=== PATIENT | female | born 1940 | race Caucasian/White ===

== ENCOUNTER 2016-09-08 04:54 | Emergency (ER) | payer MEDICARE ==
[~2016-09-08] VITALS: Ht 167.6 cm; Wt 72.3 kg
[2016-09-08 04:55] VITALS: BP 186/68; PULSE 71; RESP 18; O2SAT 100
[2016-09-08] MEDS ORDERED: LORazepam 1 mg Tablet PO ONE (05:30)
[2016-09-08] MEDS ORDERED: Dexamethasone 20 mg/2 mL Oral Solution PO ONE (05:30)
--- NOTE | 2016-09-08 05:40 | ED.REPORT ---
HPI-Back Pain 40 and Over Date of Service Sep 08, 2016 ED Provider: Jeffrey Akhtar MD The patient is a 76 yo female with history of osteoporosis, SVT, niacin-induce hepatitis, and hyperlipidemia who is brought to the ED via EMS for worsening left-sided low back pain onset prior to arrival. She is in the process of moving and has been lifting some boxes. She then developed a low back pain 1.5 weeks ago. She saw her PCP and was told that it is likely due to muscle strain and was given Cyclobenzaprine and Tylenol, which did not help her pain at all. The pain is dull, but it gets worse with getting up the chair or changing positions. Her pain got worse tonight after she rolled/twisted her back on bed. Pain is severe enough that she cannot move. She reports dull pain in the left lower back that radiates to the left posterior thigh. Other associated symptoms include mild lower extremity edema and numbness. She denies urinary/bowel incontinence, nausea, vomiting, abdominal pain, dysuria, urinary symptoms, fever , chills, CP, SOB, or dizziness. No trauma. She has not had symptoms like this in the past and ambulates independently. She reports hallucination with low dose of Vicodin in the past. Nursing Notes Stated Complaint: LOW BACK PAIN Chief Complaint: Back Pain or Injury Nursing Notes Reviewed: Yes Allergies: Coded Allergies: Penicillins (Verified Allergy, Unknown, 09/08/16) alendronate sodium (Verified Allergy, Unknown, 09/08/16) losartan (Verified Allergy, Unknown, 09/08/16) Scheduled PRN oxyCODONE-Acetaminophen 5-325 mg (oxyCODONE-Acetaminophen 5-325 mg) 1 Each Tablet 0.5-1 TAB PO Q4H PRN PRN For Pain General Time Seen by MD: 05:20 Chief Complaint Back pain Hx Obtained From: Patient, Spouse Arrived By: Ambulance Sudden in Onset?: Yes Onset Occurred: 1 week ago (1.5 weeks) Symptom Duration: Intermittent Caused by: Lifting Location: : Spinal lumbar area Quality: Dull Radiation: : Left leg above knee Severity: Current: Pain level 3 out of 10 Severity: Maximum: Severe Associated with: Reports: Inability to walk, Numbness left low ext, Numbness right low ext, Weakness both lower ext, Denies: Abdominal pain, Chest pain, Cough, Dysuria, Fever, Frequency, Incontinence bladder, Incontinence bowel, Nausea, Vomiting Pertinent Negative: Pt denies other symptoms Exacerbated by: Bending, Movement Pertinent Negative: Relieved by nothing Recent Healthcare: Recent doctor visit Similar Sx Previous: No Past Medical History Past Medical History osteoporosis, SVT, niacin-induce hepatitis, and hyperlipidemia Past Surgical History 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 x 7 Family History Noncontributory Smoking History Never Smoker Social History Alcohol Use: 1-3 per week Drug Use: Denies drug use Other Social History: Good social support, Ambulatory Status Independent Review of Systems Basic Review of Systems Eyes: Vision NL, No discharge ENT: Hearing NL, No pain, No nasal congestion, No pharyngeal pain Psychiatric: Normal thought content Constitutional: Reports: Weakness - generalized, Denies: Chills, Fatigue Respiratory: Denies: Pleuritic pain, Shortness of breath, Wheezing Cardiovascular: Reports: Edema, Denies: Chest pain, Dyspnea on exertion, Palpitations GI: Denies: Abdominal pain, Anorexia, Constipation, Diarrhea, Dysphagia, Nausea , Vomiting Female: Denies: Dysuria, Incontinence, Urinary frequency, Urinary urgency Musculoskeletal: Reports: Back pain, Lumbar pain, Denies: Myalgia, Neck pain, Thoracic pain Neurologic: Reports: Shaking, Weakness, Denies: Bladder dysfunction, Bowel dysfunction, Change LOC, Confusion, Dizziness, Focal weakness, Headache, Lightheaded, Vision change Complete sys rev & neg: except as marked. Physical Exam Initial Vital Signs Vital Signs (First) Date Time Temp Pulse Resp B/P Pulse Ox O2 Delivery O2 Flow Rate FiO2 09/08/16 04:55 36.5 71 18 186/68 100 Room Air Initial VS: Reviewed (hypertensive) Head / Eyes: Atraumatic, Normocephalic, PERRL ENT: Conjunctiva normal, No scleral icterus Neck: Supple, Non-tender, Full range of motion Skin: Warm, Dry, No cyanosis Psychiatric: Mood/affect normal, Behavior normal, Normal thought content General/Constitutional: Awake, Alert, Well appearing, Cooperative, Not toxic appearing Distress / Hydration: Positive: Dehydration mild, Distress moderate Appearance / Presentation: Positive: In pain Respiratory / Chest: Atraumatic, Breath sounds NL, Breath sounds = bilat, No respiratory distress, No rales, No wheezing, No retractions Cardiovascular: Heart rate NL, Regular rhythm, Heart sounds NL, No gallop, No murmurs Abdomen: Atraumatic, Soft, Non-tender, No guarding, No rebound, BS normoactive , No distention Back: Atraumatic Flank / Spine / Paraspinal: Positive: Lumbar spine tender... (Low), SI joint tender L Muscle Spasm / ROM: Positive: Lumbar area spasm, Thoracic area spasm Limited range of motion due to pain. Left lumbar spine is very tender to palpation. Positive straight leg raise. Neurologic: Oriented X3, Speech NL, No motor deficits, No sensory deficits, Memory NL Lower Extremity / Pelvis / MS: Atraumatic, Inspection NL, No swelling, Non- tender, No erythema, No deformity Interpretation & Diagnostics Lab Results Interpretation Result Diagram: 09/08/16 0700 09/08/16 0700 Test 09/08/16 05:30 09/08/16 07:00 Urine Color Straw (YELLOW) Urine Appearance Clear (CLEAR,HAZY) Urine pH 6.5 (5.0-8.0) Urine Specific Adams 1.005 (1.003-1.035) Urine Protein Negativemg/dL (NEG,TRACE) Urine Glucose (UA) Negativemg/dL (NEGATIVE) Urine Ketones Negativemg/dL (NEGATIVE) Urine Occult Blood Negative (NEGATIVE) Urine Nitrite Negative (NEGATIVE) Urine Bilirubin Negative (NEGATIVE) Urine Urobilinogen Normalmg/dL (NORMAL) Urine Leukocyte Esterase Negative (NEGATIVE) Urine RBC 0-2/hpf (0-2) Urine WBC 0-5/hpf (0-5) Urine Epithelial Cells None/hpf (NONE-MOD) Urine Crystals None seen (NONE SEEN) Urine Bacteria None/hpf (NONE-FEW) Urine Hyaline Casts None/lpf (NONE) Urine Granular Casts None seen (NONE SEEN) Urine Waxy Casts None seen (NONE SEEN) Urine Red Blood Cell Casts None seen (NONE SEEN) Urine White Blood Cell Casts None seen (NONE SEEN) Urine Mucus None seen (None Seen) Urine Trichomonas None seen (NONE SEEN) Urine Yeast None (NONE SEEN) Urinalysis Comment None Urine Culture Reflexed Not indicated White Blood Count 5.2th/mm3 (3.8-10.1) Red Blood Count 4.06mil/mm3 (3.90-5.20) Hemoglobin 12.4g/dL (12.0-15.6) Hematocrit 37.9% (35.0-46.0) Mean Corpuscular Volume 93.3fL (81-100) Mean Corpuscular Hemoglobin 30.5pg (27.0-35.0) Mean Corpuscular Hemoglobin Concent 32.7% (32.0-37.0) Red Cell Distribution Width 13.1% (12.3-15.4) Platelet Count 175bil/L (150-400) Neutrophils (%) (Auto) 72.2% (40-74) Lymphocytes (%) (Auto) 19.7% (14-46) Monocytes (%) (Auto) 5.8% (4-12) Eosinophils (%) (Auto) 1.7% (0-5) Basophils (%) (Auto) 0.4% (0-3) Sodium Level 142mEq/L (134-144) Potassium Level 3.9mEq/L (3.5-5.2) Chloride Level 106mEq/L (97-108) Carbon Dioxide Level 25mmol/L (18-29) Blood Urea Nitrogen 17mg/dL (8-27) Creatinine 0.69mg/dL (0.57-1.00) Estimat Glomerular Filtration Rate 118mL/min (>59) Glucose Level 122mg/dL (60-99) Calcium Level 9.8mg/dL (8.5-10.1) Total Bilirubin 0.4mg/dL (0.0-1.2) Aspartate Amino Transf (AST/SGOT) 25U/L (0-50) Alanine Aminotransferase (ALT/SGPT) 22U/L (0-32) Alkaline Phosphatase 35U/L (25-165) Total Protein 6.2g/dL (6.4-8.4) Albumin 4.2g/dL (3.4-5.0) Re-Eval/Medical Decision Med Decision/Clinical Course 76 yo female with history of osteoporosis, SVT, niacin-induce hepatitis, and hyperlipidemia who is brought to the ED via EMS for worsening left-sided sciatica onset prior to arrival. She has had low back pain in the last 1.5 weeks from lifting boxes. She was prescribed Cyclobenzaprine by her PCP but it did not give her any relief. Today, the back pain is worse and radiates to the left posterior thigh. She admits to numbness in her feet, but denies any urinary /bowel incontinence, dysuria, fever, chills, CP, or SOB. No trauma. We will check her lumbar XR to rule out any pathological fracture given her history of osteoporosis. Will bladder scan and check her UA for any infection. For pain control, patient is given Tramadol, Ativan, Decadron, and Ketorolac IM. Case is discussed and signed out to Dr. Lucio. Source of Hx: Family Counseled Regarding: Diagnosis, Lab results, Need for follow-up, When/why to return to ED Discharge & Departure Shift Change Sign-Out Patient Care Transferred: Yes Discussed Complaint(s): Yes Laboratory Evaluation: Done, results pending Imaging Studies: Done, reviewed by me Response to Therapy: Discussed Impression: Primary Impression: Lumbar radiculopathy Additional Impression: Lumbar strain Disposition: Home Discharge Condition All VS Reviewed: Yes Condition: Stable Referrals: Martir Padilla MD (PCP) Care Transferred to: Dr. Lucio See my, Dr. Lucio, documentation in a separate "ED Note". Care Transferred at: 06:00 Scribe Attestation Portions of this note were transcribed by Darci Walters. I, , personally performed the history, physical exam and medical decision-making;I reviewed and confirmed the accuracy of the information in the transcribed note. Signed by Cory Osman. 09/08/16 07:03 Attending Statement As attending of record for this patient I conducted an independent history and physical exam and concur with the resident documentation as above and as amended. copies to: Martir Padilla MD, Ngochanh H DO Sep 08, 2016 05:40 Darci Walters Sep 08, 2016 07:02 Jeffrey Akhtar MD Sep 09, 2016 07:16 Telly Lucio MD Sep 13, 2016 09:02
[2016-09-08 05:52] LABS: APPEARANCE,URINE CLEAR (CLEAR,HAZY); COLOR,URINE STRAW (YELLOW)
[2016-09-08 05:53] LABS: OCCULT BLOOD,URINE NEGATIVE (NEGATIVE); PH,URINE 6.5 (5.0-8.0); UROBILINOGEN,URINE NORMAL (NORMAL)
[2016-09-08 07:13] LABS: BASOPHILS % (AUTO) 0.4 % (0-3); EOSINOPHILS % (AUTO) 1.7 % (0-5); MONOCYTES % (AUTO) 5.8 % (4-12); Mean Corpuscular Hemoglobin 30.5 pg (27.0-35.0); Mean Corpuscular Volume 93.3 fL (81-100); NEUTROPHILS % (AUTO) 72.2 % (40-74); Platelet Count 175 bil/L (150-400)
[2016-09-08] MEDS ORDERED: oxyCODONE-Acetamin 5-325 mg Tablet PO ONE (08:05)
--- NOTE | 2016-09-08 08:09 | PCM.EDPN ---
ED Note Date of Service Sep 08, 2016 I assumed care of this patient from Drs. Akhtar and Ursula at approximately 6 AM. I reviewed the documentation in detail and have interviewed and examined the patient myself. She currently denies any severe neurologic deficits and she also is able to demonstrate normal neurologic function of her lower extremities. She is able to get out of bed with some assistance and stand at the bedside unassisted. I believe that musculoskeletal pain is most likely diagnosis without severe neurologic compromise. I believe outpatient follow-up is appropriate. Assessment: Musculoskeletal low back pain with right-sided radiculopathy. Plan: Continue naproxen 500 mg twice daily and add oxycodone/APAP 5/325 one half to one tablet every 4 hours as needed for severe pain. Telly Lucio MD Sep 08, 2016 08:09
[2016-09-08] MEDS ORDERED: OXYC1TAB24 PO (08:12)
[2016-09-08 08:26] VITALS: BP 160/87; PULSE 86; RESP 16; O2SAT 97
--- NOTE | 2016-09-08 08:58 | DRSVH ---
PROCEDURE: X-RAY LUMBAR SPINE, 2 OR 3 VIEW INDICATIONS: Low back pain TECHNIQUE: 3 views of the lumbar spine were acquired. COMPARISON: None. FINDINGS: Bones: 5 [id number] vertebrae are present. Mild dextroscoliosis.. No vertebral body compressio n fractures. No suspicious bony lesions. Minimal degenerative disc and facet disease. Soft tissues: Overlying bowel gas pattern is normal. No suspicious soft tissue calcifications. IMPRESSION: Minimal multilevel disc degeneration lower lumbar spine facet joint arthropathy. Dictated by: Brenton GOMEZ Interpreted: Minnie Sexton MD on 09/08/2016 at 8:56 Transcribed by: JEFFERSON on 09/08/2016 at 8:57 Approved by: Minnie Sexton MD, PhD on 09/08/2016 at 11:26
== END 2016-09-08 08:28 | disposition home or self-care (01) ==
LOC: SED 04:54
DX: M54.5 Low back pain (principal); M54.16 Radiculopathy, lumbar region; E78.5 Hyperlipidemia, unspecified; M81.0 Age-related osteoporosis without current pathological fracture; X50.0XXA Overexertion from strenuous movement or load, initial encounter; Y93.89 Activity, other specified; Y92.89 Other specified places as the place of occurrence of the external cause; Y99.8 Other external cause status; Z88.0 Allergy status to penicillin; Z88.8 Allergy status to other drugs, medicaments and biological substances
CPT/HCPCS: 36415; 51798; 72100; 80053; 81000; 85025; 96372; 99285; J1885